=== PATIENT | male | born 1980 | race Two or more races ===

== ENCOUNTER 2022-03-11 14:52 | Emergency (ER) | payer SELFPAY ==
[~2022-03-11] VITALS: Ht 175.3 cm; Wt 100.0 kg
[2022-03-11 16:15] LABS: Urine Bacteria FEW /hpf (None Seen); Urine Blood Negative /uL (Negative); Urine Mucus FEW (None Seen); Urine Specific Gravity 1.028 (1.001-1.035); Urine WBC 1 /hpf (0 - 3)
[2022-03-11 16:26] VITALS: BP 153/100
[2022-03-11] MEDS ORDERED: KETO2CRE4 TOP (16:35)
[2022-03-11] MEDS ORDERED: CEPH-510 PO (16:35)
== END 2022-03-11 17:09 | disposition home or self-care (01) ==
LOC: ER 14:55
DX: N48.1 Balanitis (principal); R03.0 Elevated blood-pressure reading, without diagnosis of hypertension; B99.9 Unspecified infectious disease
CPT/HCPCS: 81001